=== PATIENT | male | born 1975 | race Two or more races ===

== ENCOUNTER 2020-06-17 09:10 | Emergency (ER) | payer BC, OTHER ==
[~2020-06-17] VITALS: Ht 175.3 cm; Wt 78.0 kg
[2020-06-17 09:13] VITALS: BP 123/90
--- NOTE | 2020-06-17 09:18 | NUR ---
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 DELATED FROM RECORD AND CHANGED TO [facility]
[2020-06-17] MEDS ORDERED: FLUORESCEIN OPHTHALMIC 1 MG STRIP ONE ×2 (09:24→09:26)
[2020-06-17] MEDS ORDERED: PROPARACAINE OPHTH 0.5%, 15ML ONE ×2 (09:24→09:26)
--- NOTE | 2020-06-17 09:28 | NUR ---
PT HAS ERYTHEMA AND DISCHARGE RIGHT EYE STARTED YESTERDAY
[2020-06-17] MEDS ORDERED: FLUORESCEIN/BENOXINATE 5 ML DROPS OP ONE (09:30)
[2020-06-17] MEDS ORDERED: PROPARACAINE OPHTH 0.5%, 15ML EACHEYE ONE (09:30)
--- NOTE | 2020-06-17 09:58 | NUR ---
dr georges spoke with dr zheng
--- NOTE | 2020-06-17 10:51 | NUR ---
right eye flushed with one liter of normal saline iv bag via cassia lens. pt tolerated well.
== END 2020-06-17 11:56 | disposition home or self-care (01) ==
LOC: ED 09:35
DX: H10.211 Acute toxic conjunctivitis, right eye (principal); X58.XXXA Exposure to other specified factors, initial encounter; Y93.89 Activity, other specified; Y92.89 Other specified places as the place of occurrence of the external cause; Y99.8 Other external cause status
CPT/HCPCS: 99283

== ENCOUNTER 2020-10-22 18:44 | Emergency (ER) | payer OTHER ==
[~2020-10-22] VITALS: Ht 175.3 cm; Wt 79.2 kg
[2020-10-22] MEDS ORDERED: LIDOCAINE-MPF 1%, 5ML INFIL ONE (20:00)
[2020-10-22] MEDS ORDERED: DIPH,PERTUSS(ACELL),TET VAC/PF 0.5 ML IM-VACC ONE ×2 (20:00→20:02)
[2020-10-22] MEDS ORDERED: LIDOCAINE-MPF 1%, 5ML ONE (20:02)
[2020-10-22 20:43] VITALS: BP 139/78
[2020-10-22] MEDS ORDERED: NEOSPORIN OINT. PKT 1 PACKET ONE (20:54)
--- NOTE | 2020-10-22 20:54 | NUR ---
PT IN BED. EMT IRRIGATED WOUND.
--- NOTE | 2020-10-22 21:20 | NUR ---
SUTURES DONE AT BEDSIDE BY PA. PT WALKED OUT SELF WITH STEADY GAIT. DISCUESSED IF S&S OF INFECTION AND IF CONDITION WORSENS RETURN TO ER.
== END 2020-10-22 21:23 | disposition home or self-care (01) ==
LOC: ED 19:14
DX: S61.412A Laceration without foreign body of left hand, initial encounter (principal); X58.XXXA Exposure to other specified factors, initial encounter; Y93.89 Activity, other specified; Y92.89 Other specified places as the place of occurrence of the external cause; Y99.8 Other external cause status
CPT/HCPCS: 12041; 90471; 90715; 99284